=== PATIENT | female | born 1965 | race African-American/Black ===

== ENCOUNTER 2018-01-19 13:28 | Emergency (ER) | payer MEDICAID ==
[~2018-01-19] VITALS: Ht 170.2 cm; Wt 69.0 kg
[2018-01-19 13:39] VITALS: BP 148/105
== END 2018-01-19 18:09 | disposition left against medical advice (07) ==
LOC: ER 13:28
DX: R07.89 Other chest pain (principal); R05 Cough; Z53.21 Procedure and treatment not carried out due to patient leaving prior to being seen by health care provider
CPT/HCPCS: 93005

== ENCOUNTER 2019-07-10 19:08 | Emergency (ER) | payer MEDICAID ==
[~2019-07-10] VITALS: Ht 167.6 cm; Wt 71.0 kg
[2019-07-10] MEDS ORDERED: MAGNESIUM/ALUMINUM HYDROXIDE/SIMETHICONE 30ML UDC PO STA (19:38)
[2019-07-10] MEDS ORDERED: PANTOPRAZOLE SODIUM 40 MG/VIAL IV STA (19:38)
[2019-07-10] MEDS ORDERED: SODIUM CHLORIDE 0.9% 1,000 ML IV ONE (19:38)
[2019-07-10] MEDS ORDERED: ONDANSETRON HCL 4MG/2ML INJ IV STA (19:38)
[2019-07-10 20:22] LABS: BASOPHILS % 0.9 % (0.0-2.0); EOSINOPHILS % 0.5 % (0.0-5.0); HEMATOCRIT. 38.7 % (36.0-48.0); LYMPHOCYTES % 13.7 % (20.0-50.0); MEAN CORPUSCULAR HEMOGLOBIN 31.2 pg (28.0-32.0); MEAN CORPUSCULAR VOLUME 92.9 fL (81.0-99.0); MEAN PLATELET VOLUME 8.8 fl (7.4-10.4); MONOCYTES % 4.4 % (2.0-8.0); NEUTROPHILS % 80.5 % (40.0-76.0); PLATELET 166 x1000/uL (130-400); RED BLOOD CELL COUNT 4.16 mill/uL (4.2-5.4); RED CELL DISTRIBUTION WIDTH 13.1 % (11.6-14.6)
[2019-07-10 21:13] LABS: CHLORIDE 108 mEq/L (98-107)
[2019-07-10] MEDS ORDERED: KETOROLAC 15MG/ML VIAL IV ONE (22:15)
[2019-07-10 23:06] VITALS: BP 135/87
== END 2019-07-10 23:58 | disposition home or self-care (01) ==
LOC: ER 19:08
DX: R10.13 Epigastric pain (principal); R11.2 Nausea with vomiting, unspecified; I10 Essential (primary) hypertension
CPT/HCPCS: 36415; 80053; 83690; 85025; 93005; 96361; 96374; 96375; 99284; C9113; J1885; J2405; J7030

== ENCOUNTER 2019-09-06 21:00 | Emergency (ER) | payer MEDICAID, OTHER ==
[~2019-09-06] VITALS: Ht 170.2 cm; Wt 68.0 kg
[2019-09-06] MEDS ORDERED: SODIUM CHLORIDE 0.9% 1,000 ML IV ONE (22:22)
[2019-09-06 23:07] LABS: BASOPHILS % 0.8 % (0.0-2.0); EOSINOPHILS % 0.6 % (0.0-5.0); HEMATOCRIT. 37.9 % (36.0-48.0); HEMOGLOBIN. 12.9 g/dL (12.0-16.0); LYMPHOCYTES % 14.6 % (20.0-50.0); MEAN CORPUSCULAR HEMOGLOBIN 31.7 pg (28.0-32.0); MEAN CORPUSCULAR VOLUME 93.3 fL (81.0-99.0); MEAN PLATELET VOLUME 9.5 fl (7.4-10.4); MONOCYTES % 6.9 % (2.0-8.0); NEUTROPHILS % 77.1 % (40.0-76.0); PLATELET 158 x1000/uL (130-400); RED BLOOD CELL COUNT 4.06 mill/uL (4.2-5.4); RED CELL DISTRIBUTION WIDTH 13.2 % (11.6-14.6)
[2019-09-06 23:13] LABS: CLARITY URINE CLEAR (CLEAR); COLOR URINE YELLOW (YELLOW); KETONES URINE NEGATIVE (NEGATIVE); LEUKOCYTE ESTERASE URINE 1+ (NEGATIVE); NITRITE URINE NEGATIVE (NEGATIVE); OCCULT BLOOD URINE NEGATIVE (NEGATIVE); PROTEIN URINE 1+ (NEGATIVE); SPECIFIC GRAVITY URINE 1.011 (1.005-1.030); UROBILINOGEN URINE 0.2 E.U./dL (0.2-1.0)
[2019-09-06 23:17] LABS: CHLORIDE 106 mEq/L (98-107)
[2019-09-06 23:20] LABS: ETHANOL BLOOD < 10 mg/dL
[2019-09-06 23:26] LABS: METHADONE URINE SCREEN NEGATIVE (NEGATIVE)
[2019-09-06 23:27] LABS: *AMPHETAMINES SCREEN URINE NEGATIVE (NEGATIVE); *BARBITURATES SCREEN URINE NEGATIVE (NEGATIVE); CANNABINOID URINE SCREEN PRESUMTIVE POSITIVE (NEGATIVE); OPIATES URINE SCREEN NEGATIVE (NEGATIVE); PHENCYCLIDINE URINE SCREEN NEGATIVE (NEGATIVE)
[2019-09-06 23:28] LABS: *BENZODIAZEPINES SCREEN URINE NEGATIVE (NEGATIVE); *COCAINE SCREEN URINE NEGATIVE (NEGATIVE)
[2019-09-07 00:35] VITALS: BP 95/68
== END 2019-09-07 01:06 | disposition short-term general hospital (02) ==
LOC: ER 21:00
DX: R55 Syncope and collapse (principal); S09.8XXA Other specified injuries of head, initial encounter; W18.39XA Other fall on same level, initial encounter; Y93.89 Activity, other specified; Y92.89 Other specified places as the place of occurrence of the external cause
CPT/HCPCS: 36415; 70450; 71045; 80053; 80305; 80320; 81003; 82140; 83605; 84484; 85025; 93005; 96360; 99285; J7030; G0480

== ENCOUNTER 2021-09-26 18:48 | Emergency (ER) | payer MEDICAID, OTHER ==
[~2021-09-26] VITALS: Ht 170.2 cm; Wt 68.0 kg
[2021-09-26 21:41] LABS: HEMATOCRIT. 35.8 % (36.0-48.0); HEMOGLOBIN. 11.5 g/dL (12.0-16.0); MEAN CORPUSCULAR HEMOGLOBIN 27.2 pg (28.0-32.0); MEAN CORPUSCULAR VOLUME 84.9 fL (81.0-99.0); MEAN PLATELET VOLUME 8.8 fl (7.4-10.4); PLATELET 282 x1000/uL (130-400); RED BLOOD CELL COUNT 4.22 mill/uL (4.2-5.4); RED CELL DISTRIBUTION WIDTH 15.7 % (11.6-14.6)
[2021-09-26 22:00] LABS: CHLORIDE 103 mEq/L (98-107)
[2021-09-26 22:09] LABS: PLATELET ESTIMATE NORMAL
[2021-09-27] VITALS: BP 124/89
== END 2021-09-27 00:36 | disposition left against medical advice (07) ==
LOC: ER 18:48
DX: R06.02 Shortness of breath (principal); I11.0 Hypertensive heart disease with heart failure; I50.9 Heart failure, unspecified; J44.9 Chronic obstructive pulmonary disease, unspecified
CPT/HCPCS: 36415; 71045; 80053; 83880; 84484; 85025; 93005; 99291

== ENCOUNTER 2022-01-01 01:12 | Inpatient (IN) | payer MEDICAID, OTHER ==
[2022-01-01] VITALS (15 sets, daily range): BP systolic 134–151; BP diastolic 90–115
[~2022-01-01] VITALS: Ht 170.2 cm; Wt 59.0 kg
[2022-01-01 01:56] LABS: HEMATOCRIT 31.3 % (36.0-48.0); HEMOGLOBIN 9.9 g/dL (12.0-16.0); MEAN CORPUSCULAR HEMOGLOBIN 31.6 pg (28.0-32.0); MEAN CORPUSCULAR VOLUME 100.3 fL (81.0-99.0); PLATELET 74 x1000/uL (130-400); RED BLOOD CELL COUNT 3.12 mill/uL (4.2-5.4); RED CELL DISTRIBUTION WIDTH 25.8 % (11.6-14.6)
[2022-01-01 02:03] LABS: CHLORIDE 106 mEq/L (98-107)
[2022-01-01 07:22] LABS: INR 1.5; PROTHROMBIN TIME 15.5 sec (9.6-11.0)
[2022-01-01] MEDS ORDERED: LIDOCAINE HCL 1% 50ML VIAL (10MG/ML) ONE (07:54)
[2022-01-01] MEDS ORDERED: FENTANYL CITRATE/PF 50MCG/ML 2ML VIAL IV NR (07:54)
[2022-01-01] MEDS ORDERED: FENTANYL CITRATE/PF 50MCG/ML 2ML VIAL ONE (07:54)
[2022-01-01] MEDS ORDERED: CEFAZOLIN 1000MG PREMIX 50 ML IV NR (08:00)
[2022-01-01] MEDS ORDERED: AMLODIPINE 10MG TABLET PO SCH (12:00)
[2022-01-01] MEDS ORDERED: ACETAMINOPHEN 325MG TABLET PO PRN (12:00)
[2022-01-01] MEDS ORDERED: ONDANSETRON HCL 4MG/2ML INJ IV PRN (12:00)
[2022-01-01 13:58] LABS: HEPATITIS B SURFACE ANTIGEN NEGATIVE
[2022-01-01] MEDS ORDERED: EPOETIN ALFA-EPBX 4,000 UNIT/ML VIAL SUBCUT SCH (21:00)
== END 2022-01-01 18:41 | disposition home or self-care (01) | DRG 466 ==
LOC: ER 01:12 → 6EST 02:14 → EDBEDREQTM 02:20 → EDBEDREQ 02:20 → ENRESERV 09:11
PROVIDERS: ADMIT Internal Medicine; ATTEND Internal Medicine
PROC: 0JH63XZ Insertion of Tunneled Vascular Access Device into Chest Subcutaneous Tissue and Fascia, Percutaneous Approach (ICD-10-PCS; principal; 2022-01-01)
PROC: 02HV33Z Insertion of Infusion Device into Superior Vena Cava, Percutaneous Approach (ICD-10-PCS; 2022-01-01)
PROC: B548ZZA Ultrasonography of Superior Vena Cava, Guidance (ICD-10-PCS; 2022-01-01)
PROC: B5181ZA Fluoroscopy of Superior Vena Cava using Low Osmolar Contrast, Guidance (ICD-10-PCS; 2022-01-01)
DX: T82.41XA Breakdown (mechanical) of vascular dialysis catheter, initial encounter (principal); N18.6 End stage renal disease; I13.2 Hypertensive heart and chronic kidney disease with heart failure and with stage 5 chronic kidney disease, or end stage renal disease; E44.0 Moderate protein-calorie malnutrition; D63.1 Anemia in chronic kidney disease; Z20.822 Contact with and (suspected) exposure to COVID-19; I50.9 Heart failure, unspecified; E87.6 Hypokalemia; J44.9 Chronic obstructive pulmonary disease, unspecified; Z99.2 Dependence on renal dialysis; Z86.73 Personal history of transient ischemic attack (TIA), and cerebral infarction without residual deficits; Z68.20 Body mass index [BMI] 20.0-20.9, adult; Y83.2 Surgical operation with anastomosis, bypass or graft as the cause of abnormal reaction of the patient, or of later complication, without mention of misadventure at the time of the procedure; Y92.89 Other specified places as the place of occurrence of the external cause; W18.09XA Striking against other object with subsequent fall, initial encounter; Y93.89 Activity, other specified; Y92.009 Unspecified place in unspecified non-institutional (private) residence as the place of occurrence of the external cause; Y99.8 Other external cause status
CPT/HCPCS: 36415; 36558; 71045; 76937; 77001; 80053; 85027; 86705; 86709; 86803; 87340; 87426; 99152; 99153; 99285; C1769; C1887; C9803; J0690; J0885; J3010; J3490; G0500

== ENCOUNTER 2022-01-15 20:52 | Emergency (ER) | payer OTHER ==
[~2022-01-15] VITALS: Ht 172.7 cm; Wt 65.0 kg
[2022-01-15 20:58] VITALS: BP 157/96
== END 2022-01-15 23:00 | disposition left against medical advice (07) ==
LOC: ER 21:13
DX: Z53.21 Procedure and treatment not carried out due to patient leaving prior to being seen by health care provider (principal); I13.2 Hypertensive heart and chronic kidney disease with heart failure and with stage 5 chronic kidney disease, or end stage renal disease; N18.6 End stage renal disease; I50.9 Heart failure, unspecified; J44.9 Chronic obstructive pulmonary disease, unspecified; Z99.2 Dependence on renal dialysis; Z86.73 Personal history of transient ischemic attack (TIA), and cerebral infarction without residual deficits; Z98.890 Other specified postprocedural states
CPT/HCPCS: 93005

== ENCOUNTER 2022-04-04 13:35 | Emergency (ER) | payer MEDICAID, OTHER ==
[~2022-04-04] VITALS: Ht 177.8 cm; Wt 91.0 kg
[2022-04-04 13:39] VITALS: BP 147/109
[2022-04-04] MEDS ORDERED: HEPARIN 1000 UNITS/ML 10ML ONE (14:18)
[2022-04-04 14:41] LABS: CHLORIDE 105 mEq/L (98-107)
[2022-04-04 14:47] LABS: BASOPHILS % 2.1 % (0.0-2.0); HEMATOCRIT. 35.1 % (36.0-48.0); HEMOGLOBIN. 10.8 g/dL (12.0-16.0); LYMPHOCYTES % 21.4 % (20.0-50.0); MEAN CORPUSCULAR HEMOGLOBIN 29.5 pg (28.0-32.0); MEAN CORPUSCULAR VOLUME 96.1 fL (81.0-99.0); MEAN PLATELET VOLUME 10.2 fl (7.4-10.4); MONOCYTES % 14.4 % (2.0-8.0); NEUTROPHILS % 59.1 % (40.0-76.0); PLATELET 75 x1000/uL (130-400); RED BLOOD CELL COUNT 3.65 mill/uL (4.2-5.4); RED CELL DISTRIBUTION WIDTH 17.6 % (11.6-14.6)
[2022-04-04 15:27] LABS: INR 1.5; PROTHROMBIN TIME 15.9 sec (9.6-11.0)
== END 2022-04-04 18:10 | disposition home or self-care (01) ==
LOC: ER 13:35
DX: T82.41XA Breakdown (mechanical) of vascular dialysis catheter, initial encounter (principal); Z20.822 Contact with and (suspected) exposure to COVID-19
CPT/HCPCS: 36415; 36556; 71045; 76937; 80053; 85025; 85610; 87426; 99284; C1752; C1760; C9803; J1644; L8514

== ENCOUNTER 2022-05-24 01:54 | Inpatient (IN) | payer MEDICAID, OTHER ==
[2022-05-24] VITALS (11 sets, daily range): BP systolic 105–139; BP diastolic 65–105
[~2022-05-24] VITALS: Ht 162.6 cm; Wt 86.2 kg
[2022-05-24] MEDS ORDERED: METHYLPREDNISOLONE SOD SUCC 125 MG/2 ML VIAL IV STA (03:06)
[2022-05-24] MEDS ORDERED: ALBUTEROL (0.083%) 2.5MG/3ML NEB HHN STA (03:06)
[2022-05-24] MEDS ORDERED: IPRATROPIUM BROMIDE (0.02%) 0.5MG/2.5ML NEB HHN STA (03:06)
[2022-05-24] MEDS ORDERED: FUROSEMIDE 40MG/4ML VIAL IVP ONE (03:15)
[2022-05-24 03:37] LABS: HEMATOCRIT. 34.1 % (36.0-48.0); HEMOGLOBIN. 10.9 g/dL (12.0-16.0); MEAN CORPUSCULAR HEMOGLOBIN 30.5 pg (28.0-32.0); MEAN CORPUSCULAR VOLUME 95.2 fL (81.0-99.0); MEAN PLATELET VOLUME 8.9 fl (7.4-10.4); PLATELET 63 x1000/uL (130-400); RED BLOOD CELL COUNT 3.58 mill/uL (4.2-5.4); RED CELL DISTRIBUTION WIDTH 18.2 % (11.6-14.6)
[2022-05-24 04:31] LABS: CHLORIDE 99 mEq/L (98-107)
[2022-05-24 04:59] LABS: BG BASE EXCESS -7.1 mmol/L (-2.0-2.0); BG CARBOXYHEMOGLOBIN 0.8 % (0.5-1.5); BG DEOXYHEMOGLOBIN 9.2 % (0.0-5.0); BG FRACTION INSPIRED OXYGEN 21; BG HCO3 ACT 17.8 mmol/L (22.0-26.0); BG METHEMOGLOBIN 0.4 % (0.0-1.5); BG OXYGEN SATURATION 90.7 % (92.0-98.5); BG OXYHEMOGLOBIN 89.6 % (94.0-97.0); BG PCO2 33.8 mmHg (35.0-45.0); BG PO2 63.1 mmHg (75.0-100.0); BG SAMPLE SITE LEFT RADIAL; BG TOTAL HEMOGLOBIN 11.8 g/dL (12.0-18.0); BG VENT MODE ROOM AIR
[2022-05-24 07:31] LABS: PLATELET ESTIMATE DECREASED
[2022-05-24] MEDS ORDERED: ONDANSETRON HCL 4MG/2ML INJ IV PRN (14:00)
[2022-05-24] MEDS ORDERED: ACETAMINOPHEN 325MG TABLET PO PRN (14:00)
[2022-05-24] MEDS ORDERED: CEFTRIAXONE 1,000 MG in DEXTROSE 5% WATER 50 ML IV SCH (16:00)
[2022-05-24] MEDS ORDERED: ALBUTEROL 6.7GM HFA INHALER ORI PRN (16:00)
[2022-05-24 16:11] LABS: HEPATITIS B SURFACE ANTIGEN NEGATIVE
[2022-05-25] VITALS: BP 140/94
[2022-05-25 04:00] VITALS: BP 125/85
[2022-05-25 06:26] LABS: BASOPHILS % 0.2 % (0.0-2.0); HEMATOCRIT. 34.3 % (36.0-48.0); HEMOGLOBIN. 10.9 g/dL (12.0-16.0); LYMPHOCYTES % 13.9 % (20.0-50.0); MEAN CORPUSCULAR HEMOGLOBIN 30.1 pg (28.0-32.0); MEAN PLATELET VOLUME 9.8 fl (7.4-10.4); MONOCYTES % 10.7 % (2.0-8.0); NEUTROPHILS % 75.2 % (40.0-76.0); PLATELET 72 x1000/uL (130-400); RED BLOOD CELL COUNT 3.61 mill/uL (4.2-5.4)
[2022-05-25 08:00] VITALS: BP 118/79
== END 2022-05-25 11:35 | disposition left against medical advice (07) | DRG 137 ==
LOC: ER 01:54 → ENRESERV 11:44 → 7EST 13:44
PROVIDERS: ADMIT Internal Medicine; ATTEND Internal Medicine
PROC: 5A1D70Z Performance of Urinary Filtration, Intermittent, Less than 6 Hours Per Day (ICD-10-PCS; principal; 2022-05-24)
DX: U07.1 COVID-19 (principal); J96.01 Acute respiratory failure with hypoxia; I13.2 Hypertensive heart and chronic kidney disease with heart failure and with stage 5 chronic kidney disease, or end stage renal disease; E44.0 Moderate protein-calorie malnutrition; N18.6 End stage renal disease; J18.9 Pneumonia, unspecified organism; I50.9 Heart failure, unspecified; E87.1 Hypo-osmolality and hyponatremia; J44.0 Chronic obstructive pulmonary disease with (acute) lower respiratory infection; J44.1 Chronic obstructive pulmonary disease with (acute) exacerbation; Z53.29 Procedure and treatment not carried out because of patient's decision for other reasons; E66.9 Obesity, unspecified; D64.9 Anemia, unspecified; Z86.73 Personal history of transient ischemic attack (TIA), and cerebral infarction without residual deficits; Z87.891 Personal history of nicotine dependence; Z99.2 Dependence on renal dialysis; Z91.15 Patient's noncompliance with renal dialysis; Z68.32 Body mass index [BMI] 32.0-32.9, adult
CPT/HCPCS: 36415; 36600; 71045; 80048; 80053; 82375; 82805; 83880; 85025; 86705; 86709; 86803; 87340; 87426; 90935; 93005; 94640; 99285; C9803; J0696; J1940; J2930; J7060

== ENCOUNTER 2022-05-27 15:05 | Emergency (ER) | payer OTHER ==
[~2022-05-27] VITALS: Ht 167.6 cm; Wt 75.0 kg
[2022-05-27 15:08] VITALS: BP 128/89
== END 2022-05-27 17:57 | disposition left against medical advice (07) ==
LOC: ER 15:05
DX: Z53.21 Procedure and treatment not carried out due to patient leaving prior to being seen by health care provider (principal)

== ENCOUNTER 2022-09-16 11:10 | Emergency (ER) | payer MEDICAID, OTHER ==
[~2022-09-16] VITALS: Ht 162.6 cm; Wt 90.0 kg
[2022-09-16 11:17] VITALS: BP 145/108; PULSE 88; RESP 18; TEMP 96.4; O2SAT 97
[2022-09-16 11:53] LABS: BASOPHILS % 1.6 % (0.0-2.0); EOSINOPHILS % 2.5 % (0.0-5.0); HEMATOCRIT. 37.5 % (36.0-48.0); HEMOGLOBIN. 11.7 g/dL (12.0-16.0); LYMPHOCYTES % 20.2 % (20.0-50.0); MEAN CORPUSCULAR HEMOGLOBIN 29.6 pg (28.0-32.0); MEAN CORPUSCULAR VOLUME 94.8 fL (81.0-99.0); MEAN PLATELET VOLUME 9.2 fl (7.4-10.4); NEUTROPHILS % 61.7 % (40.0-76.0); PLATELET 63 x1000/uL (130-400); RED BLOOD CELL COUNT 3.96 mill/uL (4.2-5.4); RED CELL DISTRIBUTION WIDTH 18.2 % (11.6-14.6)
[2022-09-16 11:54] LABS: CHLORIDE 108 mEq/L (98-107)
[2022-09-16 11:59] LABS: INR 1.3; PARTIAL THROMBOPLASTIN TIME 28.5 sec (23.4-31.0); PROTHROMBIN TIME 13.5 sec (9.6-11.0)
== END 2022-09-16 13:49 | disposition home or self-care (01) ==
LOC: ER 11:10
DX: E11.22 Type 2 diabetes mellitus with diabetic chronic kidney disease (principal); I12.0 Hypertensive chronic kidney disease with stage 5 chronic kidney disease or end stage renal disease; N18.6 End stage renal disease; I11.0 Hypertensive heart disease with heart failure; I50.9 Heart failure, unspecified; J44.1 Chronic obstructive pulmonary disease with (acute) exacerbation; Z98.890 Other specified postprocedural states; Z86.73 Personal history of transient ischemic attack (TIA), and cerebral infarction without residual deficits
CPT/HCPCS: 36415; 71045; 76700; 80053; 85025; 99285

== ENCOUNTER 2022-10-09 16:16 | Emergency (ER) | payer MEDICAID, OTHER ==
[~2022-10-09] VITALS: Ht 170.2 cm; Wt 68.0 kg
[2022-10-09 16:24] VITALS: BP 119/88; TEMP 98.1; O2SAT 96
[2022-10-09 16:35] VITALS: PULSE 60
[2022-10-09 17:34] LABS: BASOPHILS % 0.5 % (0.0-2.0); HEMATOCRIT. 36.4 % (36.0-48.0); HEMOGLOBIN. 11.3 g/dL (12.0-16.0); LYMPHOCYTES % 16.9 % (20.0-50.0); MEAN CORPUSCULAR VOLUME 96.7 fL (81.0-99.0); MONOCYTES % 12.7 % (2.0-8.0); NEUTROPHILS % 66.9 % (40.0-76.0); PLATELET 72 x1000/uL (130-400); RED BLOOD CELL COUNT 3.76 mill/uL (4.2-5.4); RED CELL DISTRIBUTION WIDTH 17.2 % (11.6-14.6)
[2022-10-09 17:48] LABS: CHLORIDE 108 mEq/L (98-107)
[2022-10-09 18:03] LABS: HCG SCREEN NEGATIVE
[2022-10-11] MEDS ORDERED: ALBU4TAB6 MT (01:35)
[2022-10-11] MEDS ORDERED: ATOR40TA70 PO (01:35)
[2022-10-11] MEDS ORDERED: AMIO100T4 PO (01:35)
[2022-10-11] MEDS ORDERED: GABA-529 PO (01:35)
[2022-10-11] MEDS ORDERED: SACU1TAB MT (01:37)
[2022-10-11] MEDS ORDERED: COR6 PO (01:37)
[2022-10-11] MEDS ORDERED: LEVO25TA7 PO (01:37)
[2022-10-11] MEDS ORDERED: ASPI-1497 PO (01:37)
[2022-10-11] MEDS ORDERED: NITR0.4T49 SL (01:37)
[2022-10-11] MEDS ORDERED: PANT40TA51 PO (01:37)
[2022-10-13] MEDS ORDERED: ATOR10TA PO (12:55)
[2022-10-13] MEDS ORDERED: ALBU2.5V13 NEB (12:56)
[2022-10-13] MEDS ORDERED: COR6 PO (12:57)
[2022-10-13] MEDS ORDERED: AMI2 PO (12:58)
[2022-10-13] MEDS ORDERED: TRAZ-251 PO (12:59)
== END 2022-10-10 00:04 | disposition left against medical advice (07) ==
LOC: ER 16:18 → CANBEDREQ 10-11 20:26
DX: Z53.21 Procedure and treatment not carried out due to patient leaving prior to being seen by health care provider (principal)
CPT/HCPCS: 36415; 71045; 80053; 84484; 84703; 85025; 93005; 99281

== ENCOUNTER 2023-01-15 14:27 | Inpatient (IN) | payer OTHER ==
[~2023-01-15] VITALS: Ht 157.5 cm; Wt 86.6 kg
[~2023-01-15 14:27] MED LIST: ALBU2.5V13 NEB; ALBU4TAB6 MT; AMI2 PO; ASPI-1497 PO; ATOR10TA PO; COR6 PO; GABA-529 PO; LEVO25TA7 PO; NITR0.4T49 SL; PANT40TA51 PO; SACU1TAB MT; TRAZ-251 PO
[2023-01-15 14:29] VITALS: O2SAT 96
[2023-01-15] MEDS ORDERED: IOHEXOL-350 100 ML BOTTLE ONE (14:46)
[2023-01-15 15:27] LABS: HEMATOCRIT. 36.2 % (36.0-48.0); HEMOGLOBIN. 11.2 g/dL (12.0-16.0); MEAN CORPUSCULAR VOLUME 96.7 fL (81.0-99.0); MEAN PLATELET VOLUME 8.5 fl (7.4-10.4); PLATELET 82 x1000/uL (130-400); RED BLOOD CELL COUNT 3.74 mill/uL (4.2-5.4); WHITE BLOOD COUNT 5.8 x1000/uL (4.5-11.0)
[2023-01-15 15:29] LABS: DIFFERENTIAL COMMENT 1
[2023-01-15 15:35] LABS: CHLORIDE 106 mEq/L (98-107); INDEX HEMOLYSI 2 (1-3); INDEX ICTERIC 1 (1-4); INDEX LIPEMIC 1 (1-3); POTASSIUM 5.1 mEq/L (3.5-5.1); SODIUM 137 mEq/L (136-145)
[2023-01-15 15:40] LABS: INR 1.3; PROTHROMBIN TIME 13.3 sec (9.6-11.0)
[2023-01-15 15:46] LABS: ALANINE AMINOTRANSFERASE 11 IU/L (13-61); ALBUMIN 2.5 g/dL (3.4-5.0); ASPARTATE AMINOTRANSFERASE 22 IU/L (15-37); BILIRUBIN TOTAL 1.7 mg/dL (0.1-1.0); CALCIUM 9.4 mg/dL (8.5-10.1); CARBON DIOXIDE 19 mEq/L (21-32); ETHANOL BLOOD < 10 mg/dL (<10); GLUCOSE 112 mg/dL (70-105); PROTEIN TOTAL 7.5 g/dL (6.0-8.3); UREA NITROGEN BLOOD 78 mg/dL (7-21)
[2023-01-15 16:04] LABS: BG BASE EXCESS -13.7 mmol/L (-2.0-2.0); BG CARBOXYHEMOGLOBIN 1.4 % (0.5-1.5); BG DEOXYHEMOGLOBIN 0.4 % (0.0-5.0); BG FRACTION INSPIRED OXYGEN 100; BG HCO3 ACT 16.8 mmol/L (22.0-26.0); BG METHEMOGLOBIN 0.4 % (0.0-1.5); BG OXYGEN SATURATION 99.6 % (92.0-98.5); BG OXYHEMOGLOBIN 97.8 % (94.0-97.0); BG PCO2 59.7 mmHg (35.0-45.0); BG PH 7.066 (7.350-7.450); BG PO2 248.9 mmHg (75.0-100.0); BG SAMPLE SITE LEFT BRACHIAL; BG TOTAL HEMOGLOBIN 12.3 g/dL (12.0-18.0); BG VENT MODE MASK - NRB
[2023-01-15 16:11] LABS: AMMONIA 67 uMol/L (<32)
[2023-01-15 16:12] LABS: ANISOCYTOSIS 1+; PLATELET ESTIMATE DECREASED
[2023-01-15 16:16] LABS: CREATININE 11.8 mg/dL (0.6-1.3)
[2023-01-15 16:17] LABS: TROPONIN I HIGH SENSITIVITY 521 ng/L (<54)
[2023-01-15] MEDS ORDERED: ASPIRIN 325MG EC TABLET PO NR (16:30)
[2023-01-15 19:03] LABS: HEPATITIS B SURFACE ANTIGEN NEGATIVE
[2023-01-15 19:31] LABS: HEPATITIS C VIR.AB 0.09 INDEXVAL (0.00-0.80)
[2023-01-15 19:32] LABS: HEPATITIS B CORE AB IGM NEGATIVE
[2023-01-15 19:33] LABS: HEPATITIS A AB IGM NEGATIVE (NEGATIVE)
[2023-01-16] VITALS (13 sets, daily range): BP systolic 92–130; BP diastolic 50–69; PULSE 74–90; RESP 17–19; TEMP 97.6–98.2
[2023-01-16] MEDS ORDERED: IPRATROPIUM/ALBUTEROL 0.5-3(2.5)MG/3ML NEB HHN PRN (00:30)
[2023-01-16] MEDS ORDERED: NITROGLYCERIN 0.4MG TABLET SL SL PRN (00:30)
[2023-01-16] MEDS ORDERED: LEVOTHYROXINE SODIUM 25MCG TABLET PO SCH (07:40)
[2023-01-16] MEDS ORDERED: PANTOPRAZOLE 40MG DR TABLET PO SCH (07:40)
[2023-01-16] MEDS ORDERED: GABAPENTIN 100MG CAPSULE PO SCH (09:00)
[2023-01-16] MEDS ORDERED: ASPIRIN 81MG EC TABLET PO SCH (09:00)
[2023-01-16] MEDS: MIDODRINE HCL 5MG TABLET PO SCH ×4 (09:00→17:00)
[2023-01-16] MEDS ORDERED: AMIODARONE HCL 200 MG TABLET PO SCH (09:00)
[2023-01-16 09:43] LABS: T4 FREE 0.91 ng/dL (0.76-1.46); THYROID STIMULATING HORMONE 5.8 uIU/mL (0.36-3.74)
[2023-01-16 10:12] LABS: PHOSPHORUS 8.5 mg/dL (2.5-4.9)
[2023-01-16] MEDS ORDERED: LIDOCAINE HCL 1% 10 MG/ML 10ML VIAL ONE (12:25)
[2023-01-16] MEDS ORDERED: SODIUM BICARBONATE 4% (2.4MEQ) 5ML VIAL IV ONE (12:25)
[2023-01-16] MEDS ORDERED: ONDANSETRON HCL 4MG/2ML INJ IV PRN (13:30)
[2023-01-16] MEDS ORDERED: CLONIDINE 0.1MG TABLET PO PRN (13:30)
[2023-01-16] MEDS ORDERED: ENOXAPARIN 40MG/0.4ML SYR SUBCUT SCH (13:30)
[2023-01-16] MEDS ORDERED: ACETAMINOPHEN 325MG TABLET PO PRN (13:30)
[2023-01-16] MEDS ORDERED: BUDESONIDE 0.5MG/2ML NEB HHN SCH (14:00)
[2023-01-16] MEDS ORDERED: ALBUMIN HUMAN 12.5GM/50ML (25%) IV NR (16:00)
[2023-01-16] MEDS ORDERED: LORAZEPAM 2MG/ML CPJ IV PRN (19:45)
[2023-01-16] MEDS ORDERED: ATORVASTATIN CALCIUM 10MG TABLET PO SCH (21:00)
[2023-01-16] MEDS ORDERED: TRAZODONE HCL 50MG TABLET PO SCH (21:00)
== END 2023-01-16 20:40 | disposition left against medical advice (07) | DRG 52 ==
LOC: ER 14:27 → 7WST 15:52
PROVIDERS: ADMIT Internal Medicine; ATTEND Internal Medicine
PROC: 0W9G3ZZ Drainage of Peritoneal Cavity, Percutaneous Approach (ICD-10-PCS; principal; 2023-01-16)
PROC: 5A09357 Assistance with Respiratory Ventilation, Less than 24 Consecutive Hours, Continuous Positive Airway Pressure (ICD-10-PCS; 2023-01-16)
PROC: 5A1D70Z Performance of Urinary Filtration, Intermittent, Less than 6 Hours Per Day (ICD-10-PCS; 2023-01-16)
DX: G92.8 Other toxic encephalopathy (principal); J96.02 Acute respiratory failure with hypercapnia; I13.2 Hypertensive heart and chronic kidney disease with heart failure and with stage 5 chronic kidney disease, or end stage renal disease; E87.4 Mixed disorder of acid-base balance; R18.8 Other ascites; N18.6 End stage renal disease; J44.1 Chronic obstructive pulmonary disease with (acute) exacerbation; I50.9 Heart failure, unspecified; Z53.29 Procedure and treatment not carried out because of patient's decision for other reasons; E03.9 Hypothyroidism, unspecified; K76.9 Liver disease, unspecified; Z99.2 Dependence on renal dialysis; Z86.73 Personal history of transient ischemic attack (TIA), and cerebral infarction without residual deficits
CPT/HCPCS: 36415; 36600; 49083; 70496; 70498; 71045; 80053; 80061; 80320; 82140; 82375; 82805; 83036; 84100; 84439; 84443; 84484; 85025; 86705; 86709; 86803; 87340; 90935; 93005; 94660; 99291; J3490; P9047; Q9967; A4315; G0480